=== PATIENT | female | born 1960 | race Caucasian/White ===

== ENCOUNTER 2016-07-28 10:35 | Emergency (ER) | payer OTHER ==
[~2016-07-28] VITALS: Ht 152.4 cm; Wt 66.5 kg
[~2016-07-28 10:35] MED LIST: ACET-818 PO; ATOR10TA65 PO; LEVO75TA65 PO; RANI150T5 PO
[2016-07-28 10:39] VITALS: Ht 152.4 cm; Wt 66.5 kg
[2016-07-28] MEDS ORDERED: KETOROLAC 30 MG INJ IV STA (10:50)
[2016-07-28] MEDS ORDERED: ONDANSETRON 4 MG INJ IV STA (10:50)
[2016-07-28 11:08] LABS: ADD SCAN DIFF NO
[2016-07-28 11:18] LABS: BASOPHILS % 0.3 % (0.0-2.0); EOSINOPHILS % 0.7 % (0.0-7.0); LYMPHOCYTES # 1.7 10^3/ul (0.8-2.9); MEAN CORPUSCULAR HEMOGLOBIN 30.2 pg (29.0-33.0); MEAN CORPUSCULAR HGB CONC 33.3 g/dl (32.0-37.0); MEAN CORPUSCULAR VOLUME 90.7 fl (82.0-101.0); MEAN PLATELET VOLUME 9.1 fl (7.4-10.4); MONOCYTE # 0.6 10^3/ul (0.3-0.9); MONOCYTES % 10.2 % (0.0-11.0); NEUTROPHIL # 3.5 10^3/ul (1.6-7.5); NEUTROPHILS % 59.5 % (39.0-77.0); PLATELET COUNT 308 10^3/UL (140-415); RED BLOOD COUNT 4.63 10^6/ul (4.20-5.40); RED CELL DISTRIBUTION WIDTH 12.1 % (11.5-14.5)
[2016-07-28 11:20] LABS: ADD UMIC YES; URINE BILIRUBIN (Dip) NEGATIVE (NEGATIVE); URINE BLOOD (Dip) 3+ (NEGATIVE); URINE COLOR LT. YELLOW (YELLOW); URINE GLUCOSE (Dip) NEGATIVE (NEGATIVE); URINE KETONES (Dip) NEGATIVE (NEGATIVE); URINE LEUKOCYTE ESTERASE (Dip) 2+ (NEGATIVE); URINE NITRITE (Dip) NEGATIVE (NEGATIVE); URINE TOTAL PROTEIN (Dip) NEGATIVE (NEGATIVE); URINE UROBILINOGEN (Dip) 0.2 E.U./dL (0.1-1.0)
[2016-07-28 11:41] LABS: BACTERIA,URINE FEW
[2016-07-28 11:49] LABS: ALBUMIN/GLOBULIN RATIO 1.72; BILIRUBIN,INDIRECT 0.4 mg/dl (0-1.1); BILIRUBIN,TOTAL 0.4 mg/dl (0.2-1.3); CALCIUM 9.6 mg/dl (8.4-10.2); CREATININE 0.64 mg/dl (0.44-1.00); POTASSIUM 4.1 mmol/L (3.5-5.1); TOTAL PROTEIN 7.9 g/dl (6.1-8.1)
[2016-07-28] MEDS ORDERED: CEFTRIAXONE 1 GM/50 ML (PMX) 50 ML IVPB ONE (12:30)
--- NOTE | 2016-07-28 13:30 | RADRPT ---
PROCEDURE: CT abdomen and pelvis without contrast. CLINICAL INDICATION: Abdominal pain. TECHNIQUE: CT scan of the abdomen and pelvis without contrast was performed on a multi-slice CT banner . Sagittal and coronal reformatted images were obtained from the axial source images. One or more of the following dose reduction techniques were used: - Automated exposure control. - Adjustment of the mA and/or kV according to patient size. - Use of iterative reconstruction technique. DLP 803.95 mGycm. CTDIvol 13.47 mGy COMPARISON: None FINDINGS: The lung bases are clear. Coronary artery calcifications are seen in the heart. There is limited evaluation of the solid viscera from the lack of IV contrast. There is a stone within the proximal left ureter just beyond the level of the UPJ that measures 5 mm with mild left-sided perinephric fat stranding without visible hydronephrosis. Within the right ki dney, there is a 3 mm nonobstructing stone at the mid kidney. No right-sided ureteral stone or infl ammation is present. There is normal density of the liver with no gross focal lesion or biliary ductal dilatation. The gallbladder is unremarkable without inflammation. The spleen is unremarkable without mass. The adrenal glands demonstrate bilateral low density nodul es consistent with adenomas measuring up to 1.7 cm on the right and up to 1.1 cm on the left. The pancreas is unremarkable without focal lesion or surrounding inflammatory changes. There is no bowel obstruction or focal bowel inflammation. The appendix is unremarkable. There is diverticulosis without diverticulitis. There is no free air or free fluid. There are no enlarged l ymph nodes. There is aortic atherosclerosis without aneurysmal dilatation. Degenerative changes are seen in t he lumbar spine with no acute osseous abnormality. The uterus and adnexal structures are grossly unremarkable. There is a trace fat containing left ing uinal hernia. IMPRESSION: 5 mm proximal left ureteral stone is seen just beyond the UPJ causing mild left-sided perinephric fa t stranding without visible hydronephrosis. Nonobstructing right mid kidney renal stone is present. No evidence of bowel obstruction or inflammation. There is diverticulosis without diverticulitis. Atherosclerotic disease is present. Bilateral adrenal adenomas are present. RPTAT: AA .Nini Blanc MD, MD Date Time Electronically viewed and signed by .Nini Blanc MD, MD on 07/28/2016 13:30 .J/
[2016-07-28] MEDS ORDERED: CIPR500T4 PO (13:35)
[2016-07-28] MEDS ORDERED: TRAM50TA2 PO (13:35)
[2016-07-28] MEDS ORDERED: IBUP-1542 PO (13:36)
--- NOTE | 2016-07-28 13:40 | ERD ---
ER Documentation Chief Complaint Date/Time DATE: 07/28/16 TIME: 13:38 Chief Complaint Complains of left flank x 2 days HPI This 55-year-old female presents with left flank pain for last 2 days. She has dysuria as well. She denies fevers, vomiting, diarrhea. Her pain is primarily in the left mid abdomen. She denies any pain in the flank or CVA area. Patient has a remote history of kidney stones ROS All systems reviewed and are negative except as per history of present illness. Medications Home Meds Active Scripts Tramadol HCl (Tramadol HCl) 50 Mg Tablet, 50 MG PO Q4 Y for PAIN, #15 TAB Prov:SABINA RIVERA MD 07/28/16 Ciprofloxacin Hcl* (Ciprofloxacin Hcl*) 500 Mg Tablet, 500 MG PO BID for 10 Days , TAB Prov:SABINA RIVERA MD 07/28/16 Reported Medications Acetaminophen-Codeine* (Tylenol No.3*) 300-30 Mg Tablet, 1 TAB PO q4-6hours Y for PAIN, TAB 11/27/13 Ranitidine Hcl* (Ranitidine Hcl*) 150 Mg Tablet, 150 MG PO HS, TAB 11/27/13 Atorvastatin Calcium (Atorvastatin Calcium) 10 Mg Tab, 10 MG PO HS, TAB 11/27/13 Levothyroxine Sodium* (Levoxyl*) 75 Mcg Tablet, 75 MCG PO AC BREAKFAST, TAB 11/27/13 Discontinued Scripts Ibuprofen* (Motrin*) 600 Mg Tab, 600 MG PO Q6, #20 TAB Prov:SABINA RIVERA MD 07/28/16 Allergies Allergies: Coded Allergies: No Known Allergy (Unverified , 11/27/13) PMhx/Soc Medical and Surgical Hx: pt denies Medical Hx, pt denies Surgical Hx Hx Alcohol Use: No Hx Substance Use: No Hx Tobacco Use: No Physical Exam Vitals Vital Signs Date Time Temp Pulse Resp B/P Pulse Ox O2 Delivery O2 Flow Rate FiO2 07/28/16 10:39 98.6 68 20 146/81 97 Physical Exam Const: [] Alert, [id number] per Head: Atraumatic Eyes: Normal Conjunctiva ENT: Normal External Ears, Nose and Mouth. Neck: Full range of motion..~ No meningismus. Resp: Clear to auscultation bilaterally Cardio: Regular rate and rhythm, no murmurs Abd: Soft, non tender, non distended. Normal bowel sounds Skin: No petechiae or rashes Back: No midline or flank tenderness. Tenderness in the left mid abdomen. No tenderness at McBurney's point no Andrade sign. Ext: No cyanosis, or edema Neur: Awake and alert Psych: Normal Mood and Affect Result Diagram: 07/28/16 1055 07/28/16 1055 Results 24 hrs Laboratory Tests Test 07/28/16 10:55 White Blood Count 6.010^3/ul Red Blood Count 4.6310^6/ul Hemoglobin 14.0g/dl Hematocrit 42.0% Mean Corpuscular Volume 90.7fl Mean Corpuscular Hemoglobin 30.2pg Mean Corpuscular Hemoglobin Concent 33.3g/dl Red Cell Distribution Width 12.1% Platelet Count 06432^3/UL Mean Platelet Volume 9.1fl Neutrophils % 59.5% Lymphocytes % 29.0% Monocytes % 10.2% Eosinophils % 0.7% Basophils % 0.3% Nucleated Red Blood Cells % 0.0/100WBC Neutrophils # 3.510^3/ul Lymphocytes # 1.710^3/ul Monocytes # 0.610^3/ul Eosinophils # 0.010^3/ul Basophils # 0.010^3/ul Nucleated Red Blood Cells # 0.010^3/ul Urine Color LT. YELLOW Urine Clarity SLIGHTLY CLOUDY Urine pH 5.0 Urine Specific [place] 1.025 Urine Ketones NEGATIVE Urine Nitrite NEGATIVE Urine Bilirubin NEGATIVE Urine Urobilinogen 0.2 E.U./dL Urine Leukocyte Esterase 2+ Urine Microscopic RBC 10-25/HPF Urine Microscopic WBC >200/HPF Urine Epithelial Cells FEW Urine Bacteria FEW Urine Hemoglobin 3+ Urine Glucose NEGATIVE% Urine Total Protein NEGATIVE Sodium Level 144mmol/L Potassium Level 4.1mmol/L Chloride Level 111mmol/L Carbon Dioxide Level 25mmol/L Anion Gap 12 Blood Urea Nitrogen 15mg/dl Creatinine 0.64mg/dl Glucose Level 90mg/dl Calcium Level 9.6mg/dl Total Bilirubin 0.4mg/dl Direct Bilirubin 0.00mg/dl Indirect Bilirubin 0.4mg/dl Aspartate Amino Transf (AST/SGOT) 28IU/L Alanine Aminotransferase (ALT/SGPT) 71IU/L Alkaline Phosphatase 120IU/L Total Protein 7.9g/dl Albumin 5.0g/dl Globulin 2.90g/dl Albumin/Globulin Ratio 1.72 Lipase 72U/L Current Medications Medications (Trade) Dose Ordered Sig/Lizandro Route PRN Reason Start Time Stop Time Status Last Admin Dose Admin Ondansetron HCl (Zofran Inj) 4 mg ONCE STAT IV 07/28/16 10:50 07/28/16 10:52 DC 07/28/16 11:05 Ketorolac Tromethamine 30 mg 30 mg ONCE STAT IV 07/28/16 10:50 07/28/16 10:52 DC 07/28/16 11:05 Ceftriaxone Sodium (Rocephin) 50 ml @ 100 mls/hr ONCE ONCE IVPB 07/28/16 12:30 07/28/16 12:59 DC 07/28/16 12:29 Procedures/MDM Urine shows positive leukocytes with many bacteria and few epithelial cells.. Urine was sent for culture. CBC and CMP are normal. Patient was given 1 g Rocephin IV. Patient was given Toradol [address] abdomen pelvis noncontrast shows a left renal stone with mild stranding without evidence of hydronephrosis. There is also an undescended left renal stone. Patient had improved symptoms after observation treatment. Patient presents with signs of urinary tract infection left flank pain. The current signs and symptoms do not suggest septic stone or sepsis. She was treated with Cipro and tramadol AND instructions for clear fluids and instructions to return for fevers, vomiting, new symptoms. Patient was referred to urology as well for evaluation of kidney stones. Departure Diagnosis: Primary Impression: UTI (urinary tract infection) Urinary tract infection type: acute cystitis Hematuria presence: without hematuria Qualified Code: N30.00 - Acute cystitis without hematuria Additional Impression: Flank pain Condition: Stable Patient Instructions: Understanding Urinary Tract Infections (UTIs), Kidney Stone W/ Colic Referrals: JESSEE DALEY MD,LEAH Kong MD Additional Instructions: ANTONY VICTOR . PROBABALAMENTE CAUSA DE DOLOR. VAMOS A TRATAR PARA INFECCION TAMBIEN. REGRESA PARA FIEBRE, VOMITO. USMMER MUCHO AGUA. SABINA RIVERA MD Jul 28, 2016 13:39
[2016-07-28] MEDS ORDERED: ACET500C5 PO (14:53)
[2016-07-28 14:55] VITALS: BP 139/75; PULSE 61; RESP 20; TEMP 98.4
== END 2016-07-28 14:58 | disposition home or self-care (01) ==
LOC: FTE 10:35
DX: N30.00 Acute cystitis without hematuria (principal)
CPT/HCPCS: 36415; 74176; 80053; 81001; 83690; 85025; 87086; 96374; 96375; 99285; J0696; J1885; J2405